=== PATIENT | female | born 1985 | race African-American/Black ===

== ENCOUNTER 2023-03-27 04:04 | Emergency (ER) | payer OTHER ==
[~2023-03-27] VITALS: Ht 177.8 cm; Wt 103.9 kg
[2023-03-27 04:10] VITALS: BP 129/87
--- NOTE | 2023-03-27 04:10 | NUR ---
PT HAS BEEN LEFT BREAST PAIN WICH RADIATING TO HER LEFT SCAPULA 07/26, IBUPROFEN WAS TAKEN AT 0300. PT WAS LASE SEEN IN [place] ON WITH THE SAME REASON NO WAS DISCHARGE WITH IBUPROFEN WHICH DIDNT HELP. HTN
--- NOTE | 2023-03-27 04:35 | NUR ---
Patient being evaluated by [facility] IN [facility]
[2023-03-27] MEDS ORDERED: KETOROLAC 15 MG/ML VIAL IM ONE (04:45)
[2023-03-27] MEDS ORDERED: METH-1681 PO (05:32)
[2023-03-27 05:35] VITALS: BP 129/87
--- NOTE | 2023-03-27 05:45 | NUR ---
SEEN AND EXAMINED BY DR. CAIN
--- NOTE | 2023-03-27 06:06 | NUR ---
Patient discharged with v/s stable. Written and verbal after care instructions given and explained. Patient alert, oriented and verbalized understanding of instructions. Ambulatory with steady gait. All questions addressed prior to discharge. ID band removed. Patient advised to follow up with PMD. Rx of ROBAXIN given. Patient educated on indication of medication including possible reaction and side effects. Opportunity to ask questions provided and answered.
== END 2023-03-27 06:06 | disposition home or self-care (01) ==
LOC: MED 04:04
DX: N64.4 Mastodynia (principal)
CPT/HCPCS: 81025; 93005; 96372; 99283; J1885